=== PATIENT | male | born 1950 | race Caucasian/White ===

== ENCOUNTER → 2017-08-18 | Outpatient (CLI) | payer MEDICARE, OTHER ==
--- NOTE | 2017-08-18 11:30 | REP ---
Abdominal aortic sonography: History: Status post aortoiliac stent graft due to abdominal aortic aneurysm in 2012. For reevaluation. Comparison study December 03, 2011. This prior study showed a 5.0 x 5.2 cm infrarenal abdominal aortic aneurysm 6.7 cm in craniocaudal length extending into the common iliac arteries. Today's sonographic findings: The abdominal aorta measures 2.6 x 3.2 cm in AP by transverse dimension at the diaphragmatic hiatus. At the level of the renal arteries these dimensions are 2.0 x 2.9 cm respectively. The mid aorta shows the aortobi-iliac stent. Aortic dimensions at mid aortic level are 2.7 x 3.2 cm. Distal aorta before the bifurcation measures 4.9 x 5.0 cm, similar to previous study. The right common iliac artery measures 2.8 cm with the stent contained within this. The left [place] common iliac artery measures 2.3 cm. Thrombus is seen surrounding the components of the stent graft with no flow seen outside of the stents at any level. Flow is seen within the stent. Impression: Status post aortoiliac stent graft with no sonographic evidence to suggest an endoleak. No increase in the size of the aneurysm since prior study. Signed by Ry Smith MD 08/18/2017 01:19 P
== END ==
LOC: M RAD 09:01
PROVIDERS: ATTEND Surgery Vascular Surgery
DX: I71.4 Abdominal aortic aneurysm, without rupture (principal)

== ENCOUNTER → 2018-03-10 | Outpatient (CLI) | payer MEDICARE, OTHER ==
[2018-03-10 08:45] LABS: ALT/SGPT 13 U/L (12-78); AST/SGOT 18 U/L (7-37); CHOLESTEROL LEVEL 177 MG/DL (<200); CHOLESTEROL RISK RATIO 4.657 (<5); CPK CREATINE PHOSPHOKINASE 108 U/L (39-308); HDL CHOLESTEROL 38 MG/DL (>40); LDL CHOLESTEROL 115.6 MG/DL (<100); NON-HDL-C 139 MG/DL; TRIGLYCERIDES LEVEL 117 MG/DL (<150)
== END ==
LOC: M LAB 07:56
DX: I25.10 Atherosclerotic heart disease of native coronary artery without angina pectoris (principal)
CPT/HCPCS: 84460

== ENCOUNTER → 2018-04-20 | Outpatient (CLI) | payer MEDICARE, OTHER ==
[2018-04-20 10:31] LABS: ALT/SGPT 17 U/L (12-78); AST/SGOT 16 U/L (7-37); CHOLESTEROL LEVEL 152 MG/DL (<200); CHOLESTEROL RISK RATIO 4.222 (<5); CPK CREATINE PHOSPHOKINASE 116 U/L (39-308); HDL CHOLESTEROL 36 MG/DL (>40); NON-HDL-C 116 MG/DL; TRIGLYCERIDES LEVEL 155 MG/DL (<150)
== END ==
LOC: M LAB 09:20
DX: E78.00 Pure hypercholesterolemia, unspecified (principal)
CPT/HCPCS: 84460

== ENCOUNTER → 2018-10-15 | Outpatient (CLI) | payer MEDICARE, OTHER | LOC: M RAD 08:23 | DX: I71.4 Abdominal aortic aneurysm, without rupture (principal); Z95.828 Presence of other vascular implants and grafts | CPT/HCPCS: 76775 ==

== ENCOUNTER → 2019-12-06 | Outpatient (CLI) | payer MEDICARE, OTHER ==
[2019-12-06 11:15] LABS: CHOLESTEROL RISK RATIO 3.738 (<5)
== END ==
LOC: M LAB 09:25
PROVIDERS: ATTEND Internal Medicine Cardiovascular Disease
DX: I25.10 Atherosclerotic heart disease of native coronary artery without angina pectoris (principal)

== ENCOUNTER → 2020-04-17 | Outpatient (CLI) | payer MEDICARE, OTHER ==
[2020-04-17 10:36] LABS: CHOLESTEROL RISK RATIO 3.692 (<5)
== END ==
LOC: M LAB 08:29
PROVIDERS: ATTEND Internal Medicine Cardiovascular Disease
DX: E78.00 Pure hypercholesterolemia, unspecified (principal)

== ENCOUNTER → 2021-01-02 | Outpatient (CLI) | payer MEDICARE, OTHER ==
[2021-01-02 09:25] LABS: CHOLESTEROL RISK RATIO 3.75 (<5)
== END ==
LOC: M LAB 07:57
PROVIDERS: ATTEND Internal Medicine Cardiovascular Disease
DX: I25.10 Atherosclerotic heart disease of native coronary artery without angina pectoris (principal); E78.00 Pure hypercholesterolemia, unspecified

== ENCOUNTER → 2021-06-20 | Outpatient (CLI) | payer MEDICARE, OTHER ==
[2021-06-20 08:36] LABS: CHOLESTEROL RISK RATIO 3.95 (<5)
== END ==
LOC: M LAB 07:45
PROVIDERS: ATTEND Internal Medicine Cardiovascular Disease
DX: E78.00 Pure hypercholesterolemia, unspecified (principal)

== ENCOUNTER → 2021-07-02 | Outpatient (CLI) | payer MEDICARE, OTHER ==
[2021-07-02 11:46] LABS: HEMATOCRIT 50.3 % (42.0-52.0); HEMOGLOBIN 17.3 g/dl (13.5-17.5); MEAN CORPUSCULAR HEMOGLOBIN 31.6 pg (27.0-33.0); MEAN CORPUSCULAR HGB CONC 34.4 g/dl (32.0-36.5); PLATELET COUNT, AUTOMATED 184 10^3/uL (150-450); RED BLOOD COUNT 5.47 10^6/uL (4.30-6.10); WHITE BLOOD COUNT 6.3 10^3/uL (4.0-10.0)
[2021-07-02 12:16] LABS: BLOOD UREA NITROGEN 22 MG/DL (7-18); CALCIUM LEVEL 9.1 MG/DL (8.8-10.2); CARBON DIOXIDE LEVEL 29 MEQ/L (21-32); CHLORIDE LEVEL 108 MEQ/L (98-107); CREATININE FOR GFR 1.08 MG/DL (0.70-1.30); GLOMERULAR FILTRATION RATE > 60.0 (>49); GLUCOSE, FASTING 101 MG/DL (70-100); POTASSIUM SERUM 4.8 MEQ/L (3.5-5.1); SODIUM LEVEL 140 MEQ/L (136-145)
== END ==
LOC: M LAB 11:07
PROVIDERS: ATTEND Physician Assistant Medical
DX: I10 Essential (primary) hypertension (principal)

== ENCOUNTER → 2021-09-03 | Outpatient (CLI) | payer MEDICARE, OTHER ==
--- NOTE | 2021-09-03 11:16 | REP ---
INDICATION: AAA W/O RUPTURE. COMPARISON: None. TECHNIQUE: 2D and pulse duplex and color Doppler ultrasound evaluation of the abdominal aorta were performed. FINDINGS: The proximal abdominal aorta measures 2.4 by 2.4 cm in axial dimension; the mid abdominal aorta measures 2.8 x 2.8 cm in axial dimension; the distal abdominal aorta measures 5.6 x 4.2 cm in axial dimension. There is a 5.6 cm in AP dimension, 7.9 cm in length fusiform infrarenal abdominal aortic aneurysm. There is an endoluminal stent across the aneurysm, and extending into both common iliac arteries. There is no evidence of stent leakage. The right common iliac artery measures 1.8 x 1.4 cm in axial dimension and the left common iliac artery measures 2.2 x 2.0 cm in axial dimension. IMPRESSION: 1. Infrarenal abdominal aortic aneurysm with stent extending into both common iliac arteries. 2. 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 3. No significant change. <Electronically signed by Dinh Lyman > 09/03/21 [id number]
== END ==
LOC: M RAD 08:47
PROVIDERS: ATTEND Surgery Vascular Surgery
DX: I71.4 Abdominal aortic aneurysm, without rupture (principal)

== ENCOUNTER → 2021-10-11 | Outpatient (CLI) | payer MEDICARE, OTHER ==
[2021-10-11 13:27] LABS: BLOOD UREA NITROGEN 19 MG/DL (7-18); CREATININE FOR GFR 1.17 MG/DL (0.70-1.30); GLOMERULAR FILTRATION RATE > 60.0 (>42)
== END ==
LOC: M LAB 12:22
PROVIDERS: ATTEND Surgery Vascular Surgery
DX: I71.4 Abdominal aortic aneurysm, without rupture (principal)

== ENCOUNTER → 2021-10-12 | Outpatient (CLI) | payer MEDICARE, OTHER ==
[~2021-10-12] MED LIST: ISOVUE-370 76% 100ML VIAL As Ordered ONE
--- NOTE | 2021-10-12 13:17 | REP ---
INDICATION: ENDO LEAK COMPARISON: 12/07/2012. TECHNIQUE: CT angiogram of the abdomen and pelvis was performed with intravenous administration of 100 cc of Isovue 370, without oral contrast. 3D MIP reconstruction images performed. FINDINGS: Abdominal aorta: The previously noted distal abdominal aortic aneurysm has decreased in size compared to the prior study, measuring 3.8 x 4.7 cm. An aorto bi-iliac stent graft is again noted. There is no evidence of endoleak. There is, however, occlusion of the left iliac portion of the stent graft. Since the prior exam there is been placement of a femoral to femoral bypass graft, which appears patent, with no stenosis. There is retrograde flow through the left external iliac artery to the distal left common iliac artery and into the left internal iliac artery. There is mild scattered plaque throughout the external iliac, common femoral and proximal superficial femoral arteries bilaterally with no significant stenosis. Mild calcific plaque is seen at the origin of the celiac and superior mesenteric arteries, with narrowing less than 50% and no significant stenosis. There is no evidence of renal artery stenosis of either single renal artery. Lung bases: There are mild bibasilar fibrotic changes. Liver: Several cystic structures are again seen in the liver, as noted on prior study, the largest is just anterior to the gallbladder fossa measuring 2.3 cm in diameter. Gallbladder: Unremarkable. Spleen: Normal. Adrenals: There is a stable 1.9 cm right adrenal adenoma. Pancreas: Normal. Kidneys: There is a 9 mm probable cyst in the upper pole the left kidney. There is cortical scarring and atrophy of the lower pole of each kidney. There is no hydronephrosis bilaterally. Small and large bowel: Unremarkable. Free fluid: None. Adenopathy: None. Appendix: Not inflamed. Pelvis: No mass. Osseous structures: There are degenerative changes of the spine without compression deformity. IMPRESSION: The previously noted distal abdominal aortic aneurysm is decreased in size as discussed above. Aorto bi-iliac stent graft demonstrates no evidence of endoleak, however, there is occlusion of the left iliac portion of the stent graft. A patent femoral to femoral bypass graft is noted with retrograde flow into the left iliac system. <Electronically signed by Joseph Salazar > 10/12/21 [id number]
== END ==
LOC: M RAD 10:35
PROVIDERS: ATTEND Surgery Vascular Surgery
DX: I71.4 Abdominal aortic aneurysm, without rupture (principal)
CPT/HCPCS: 74174; Q9967

== ENCOUNTER → 2022-01-18 | Outpatient (CLI) | payer MEDICARE, OTHER ==
[2022-01-18 08:22] LABS: CHOLESTEROL RISK RATIO 1.404 (<5)
== END ==
LOC: M LAB 07:16
PROVIDERS: ATTEND Internal Medicine Cardiovascular Disease
DX: E78.00 Pure hypercholesterolemia, unspecified (principal); I25.10 Atherosclerotic heart disease of native coronary artery without angina pectoris

== ENCOUNTER → 2022-08-08 | Outpatient (CLI) | payer MEDICARE, OTHER ==
[2022-08-08 09:11] LABS: ALT/SGPT 15 U/L (12-78); BLOOD UREA NITROGEN 24 MG/DL (7-18); CALCIUM LEVEL 9.1 MG/DL (8.8-10.2); CARBON DIOXIDE LEVEL 29 MEQ/L (21-32); CHLORIDE LEVEL 103 MEQ/L (98-107); CHOLESTEROL LEVEL 64 MG/DL (<200); CHOLESTEROL RISK RATIO 1.391 (<5); CREATININE FOR GFR 1.25 MG/DL (0.70-1.30); GLOMERULAR FILTRATION RATE > 60.0 (>42); GLUCOSE, FASTING 108 MG/DL (70-100); HDL CHOLESTEROL 46 MG/DL (>40); NON-HDL-C 18 MG/DL; SODIUM LEVEL 137 MEQ/L (136-145); TRIGLYCERIDES LEVEL 108 MG/DL (<150)
[2022-08-08 09:18] LABS: LDL CHOLESTEROL 0 MG/DL (<100)
[2022-08-10 04:07] LABS: LDL DIRECT 8 mg/dL (0-99)
== END ==
LOC: M LAB 07:39
PROVIDERS: ATTEND Physician Assistant Medical
DX: I10 Essential (primary) hypertension (principal); E78.00 Pure hypercholesterolemia, unspecified

== ENCOUNTER → 2022-09-03 | Outpatient (CLI) | payer MEDICARE, OTHER | LOC: M CARPUL 09:14 | PROVIDERS: ATTEND Internal Medicine Cardiovascular Disease | DX: I25.10 Atherosclerotic heart disease of native coronary artery without angina pectoris (principal); I73.9 Peripheral vascular disease, unspecified ==

== ENCOUNTER → 2022-11-25 | Outpatient (CLI) | payer MEDICARE, OTHER ==
[2022-11-25 08:50] LABS: CHOLESTEROL RISK RATIO 2.02 (<5); HDL CHOLESTEROL 37.6 MG/DL (>40); LDL CHOLESTEROL 8.6 MG/DL (<100)
[2022-11-26 04:07] LABS: LDL DIRECT 12 mg/dL (0-99)
== END ==
LOC: M LAB 07:44
PROVIDERS: ATTEND Physician Assistant Medical
DX: E78.00 Pure hypercholesterolemia, unspecified (principal)

== ENCOUNTER → 2023-01-23 | Outpatient (CLI) | payer MEDICARE, OTHER ==
[2023-01-23 08:38] LABS: CHOLESTEROL RISK RATIO 1.96 (<5); HDL CHOLESTEROL 43.7 MG/DL (>40); LDL CHOLESTEROL 19.7 MG/DL (<100); NON-HDL-C 42.3 MG/DL
== END ==
LOC: M LAB 07:14
PROVIDERS: ATTEND Internal Medicine Cardiovascular Disease
DX: E78.00 Pure hypercholesterolemia, unspecified (principal); Z71.3 Dietary counseling and surveillance

== ENCOUNTER → 2024-07-19 | Outpatient (CLI) | payer MEDICARE, OTHER ==
[2024-07-19 08:35] LABS: HEMATOCRIT 52.3 % (42.0-52.0); HEMOGLOBIN 17.6 g/dl (13.5-17.5); MEAN CORPUSCULAR HEMOGLOBIN 32.4 pg (27.0-33.0); MEAN CORPUSCULAR HGB CONC 33.7 g/dl (32.0-36.5); MEAN CORPUSCULAR VOLUME 96.3 fl (80.0-96.0); PLATELET COUNT, AUTOMATED 174 10^3/uL (150-450); RED BLOOD COUNT 5.43 10^6/uL (4.30-6.10); WHITE BLOOD COUNT 7.4 10^3/uL (4.0-10.0)
[2024-07-19 08:59] LABS: CALCIUM LEVEL 9.5 MG/DL (8.3-10.6); CHOLESTEROL RISK RATIO 2.31 (<5); CREATININE FOR GFR 1.45 MG/DL (0.70-1.30); GLOMERULAR FILTRATION RATE 50.9 (>42); HDL CHOLESTEROL 42.3 MG/DL (>40); LDL CHOLESTEROL 36.3 MG/DL (<100); NON-HDL-C 55.7 MG/DL; POTASSIUM SERUM 3.8 MMOL/L (3.5-5.1)
== END ==
LOC: M LAB 07:45
PROVIDERS: ATTEND Physician Assistant Medical
DX: E78.00 Pure hypercholesterolemia, unspecified (principal); I25.10 Atherosclerotic heart disease of native coronary artery without angina pectoris

== ENCOUNTER → 2025-08-22 | Outpatient (CLI) | payer MEDICARE, OTHER ==
[2025-08-22 09:26] LABS: BASO # 0.0 10^3/uL (0.0-0.2); BASO % 0.6 % (0.0-1.0); EOS # 0.2 10^3/uL (0.0-0.5); EOS % 2.7 % (0.0-3.0); LYMPH # 1.6 10^3/uL (1.5-5.0); LYMPH % 25.0 % (24.0-44.0); MONO # 0.6 10^3/uL (0.0-0.8); MONO % 9.7 % (2.0-8.0); NEUTROPHILS # 3.9 10^3/uL (1.5-8.5); NEUTROPHILS % 61.7 % (36.0-66.0); PLATELET COUNT, AUTOMATED 172 10^3/uL (150-450)
[2025-08-22 09:49] LABS: ALT/SGPT 9.0 U/L (7.0-40); AST/SGOT 18.0 U/L (<34); CALCIUM LEVEL 9.2 MG/DL (8.3-10.6); CARBON DIOXIDE LEVEL 32.0 MMOL/L (20-31); CHLORIDE LEVEL 103.0 MMOL/L (98-107); CHOLESTEROL LEVEL 99.0 MG/DL (<200); CHOLESTEROL RISK RATIO 2.64 (<5); CPK CREATINE PHOSPHOKINASE 84.0 U/L (46-171); CREATININE FOR GFR 1.36 MG/DL (0.70-1.30); GLOMERULAR FILTRATION RATE 54.6 (>42); LDL CHOLESTEROL 18.5 MG/DL (<100); NON-HDL-C 61.5 MG/DL; POTASSIUM SERUM 3.9 MMOL/L (3.5-5.1); SODIUM LEVEL 142.0 MMOL/L (136-145); TRIGLYCERIDES LEVEL 215.0 MG/DL (<150)
== END ==
LOC: M LAB 08:17
PROVIDERS: ATTEND Internal Medicine Cardiovascular Disease
DX: I25.10 Atherosclerotic heart disease of native coronary artery without angina pectoris (principal); I10 Essential (primary) hypertension; E78.00 Pure hypercholesterolemia, unspecified